=== PATIENT | female | born 1995 | race Caucasian/White ===

== ENCOUNTER 2018-06-24 08:45 | Emergency (ER) | payer MEDICAID, OTHER ==
[2018-06-24 09:03] VITALS: BP 112/60
--- NOTE | 2018-06-24 09:42 | ED ---
Throat Pain/Nasal Congestion - HPI Summary HPI Summary: 22 yr old female with the onset of sore throat two days ago. Pain in throat, redness, chills. No drooling, stridor. No nasal congestion. No other complaints. - History of Current Complaint Chief Complaint: UCGeneralIllness Time Seen by Provider: 06/24/18 09:15 - Allergies/Home Medications Allergies/Adverse Reactions: Allergies Allergy/AdvReac Type Severity Reaction Status Date / Time No Known Allergies Allergy Verified 06/24/18 09:00 Home Medications: Home Medications Ibuprofen TAB* [Advil TAB*] 800 mg PO Q6H PRN 06/24/18 [History Confirmed ] PMH/Surg Hx/FS Hx/Imm Hx Infectious Disease History: No Infectious Disease History: Denies: Traveled Outside the [place] in Last 30 Days - Family History Known Family History: Positive: Hypertension - Social History Occupation: Employed Full-time Lives: With Family Alcohol Use: Occasionally Substance Use Type: Reports: None Smoking Status (MU): Heavy Every Day Tobacco Smoker Amount Used/How Often: 1 pack per day Length of Time of Smoking/Using Tobacco: age 17 Have You Smoked in the Last Year: No Review of Systems Positive: Fever Positive: Sore Throat All Other Systems Reviewed And Are Negative: Yes Physical Exam Triage Information Reviewed: Yes Vital Signs On Initial Exam: Initial Vitals Temp Pulse Resp BP Pulse Ox 97.6 F 78 14 112/60 100 06/24/18 08:58 06/24/18 08:58 06/24/18 08:58 06/24/18 08:58 06/24/18 08:58 Vital Signs Reviewed: Yes Appearance: Positive: Well-Appearing, No Pain Distress Skin: Positive: Warm, Skin Color Reflects Adequate Perfusion Head/Face: Positive: Normal Head/Face Inspection Eyes: Positive: EOMI ENT: Positive: Pharyngeal erythema, TMs normal Neck: Positive: Supple, Nontender Respiratory/Lung Sounds: Positive: Clear to Auscultation, Breath Sounds Present Cardiovascular: Positive: RRR. Negative: Murmur Abdomen Description: Negative: Distended Musculoskeletal: Positive: Strength/ROM Intact Neurological: Positive: Sensory/Motor Intact, Alert, Oriented to Person Place, Time, CN Intact II-III Psychiatric: Positive: Normal Diagnostics - Vital Signs Vital Signs Temp Pulse Resp BP Pulse Ox 06/24/18 08:58 97.6 F 78 14 112/60 100 - Laboratory Lab Results: Lab Results 06/24/18 Range/Units 09:18 Group A Strep Rapid Negative (Negative) Lab Statement: Any lab studies that have been ordered have been reviewed, and results considered in the medical decision making process. EENT Course/Dx - Course Course Of Treatment: 22 yr old female with pharyngitis. Plan Dc home. rapid strep neg. - Diagnoses Provider Diagnoses: Pharyngitis Discharge - Sign-Out/Discharge Documenting (check all that apply): Patient Departure All imaging exams completed and their final reports reviewed: No Studies - Discharge Plan Condition: Good Disposition: HOME Patient Education Materials: Pharyngitis (ED) Referrals: Theodora Villela MD [Primary Care Provider] - 2 Days - Billing Disposition and Condition Condition: GOOD Disposition: Home
== END 2018-06-24 09:49 | disposition home or self-care (01) ==
LOC: UCCORT 08:45
DX: J02.9 Acute pharyngitis, unspecified (principal); Z87.891 Personal history of nicotine dependence
CPT/HCPCS: 87651; 99211; G0463

== ENCOUNTER 2018-09-04 14:26 | Emergency (ER) | payer OTHER ==
--- NOTE | 2018-09-06 14:54 | UC ---
Discharge - Sign-Out/Discharge Documenting (check all that apply): Post-Discharge Follow Up All imaging exams completed and their final reports reviewed: No Studies - Discharge Plan Condition: Stable Disposition: LEFT WITHOUT BEING SEEN Referrals: Theodora Villela MD [Primary Care Provider] - - Billing Disposition and Condition Condition: STABLE Disposition: Left Without Being Seen
== END 2018-09-04 14:52 | disposition left against medical advice (07) ==
LOC: UCCORT 14:26
DX: R58 Hemorrhage, not elsewhere classified (principal); Z53.21 Procedure and treatment not carried out due to patient leaving prior to being seen by health care provider

== ENCOUNTER 2022-10-01 15:27 | Inpatient (IN) ==
[2022-10-01] MEDS ORDERED: miSOPROStol 100 mcg TAB VAGINAL ONE (16:29)
[2022-10-01] MEDS ORDERED: Promethazine INJ(RESTRICTED) 25 MG/ML 1 ml VIAL IV PRN (16:29)
[2022-10-01] MEDS ORDERED: Nalbuphine 10 MG/ML 1 ML VIAL IV PRN (16:29)
[2022-10-01] MEDS ORDERED: Buffered Lidocaine 1% SYRIN 1 ml INTRADERM ONE (16:29)
[2022-10-01] MEDS ORDERED: Lactated Ringers 1000 ml BAG 1,000 ML IV ONE (16:29)
[2022-10-01 17:50] LABS: Urine Benzodiazepine Screen None Detected (None Detect); Urine Cannabinoids Screen None Detected (None Detect); Urine Opiates Screen None Detected (None Detect)
[2022-10-01] MEDS ORDERED: Dinoprostone 10 MG VAG.SUPP VAGINAL ONE (20:30)
[2022-10-01 21:31] LABS: ABS Eosinophils 0.2 10^3/ul (0-0.6); ABS Lymphocytes 2.5 10^3/ul (1.0-4.8); ABS Monocytes 1.1 10^3/ul (0-0.8); ABS Neutrophils 9.3 10^3/ul (1.5-7.7); Eosinophil % 1.4 %; Hematocrit 34 % (35-47); Hemoglobin 11.1 g/dL (12.0-16.0); Lymphocyte % 19.2 %; Mean Corpuscular HGB Conc 33 g/dL (31-36); Mean Corpuscular Hemoglobin 26 pg (27-31); Mean Corpuscular Volume 78 fL (80-97); Mean Platelet Volume 7.7 fL (7.4-10.4); Platelet Count 244 10^3/uL (150-450); Red Cell Distribution Width 14 % (10-15); White Blood Count 13.2 10^3/uL (3.5-10.8)
[2022-10-01 22:00] LABS: Albumin 3.3 g/dL (3.2-5.2); Albumin/Globulin Ratio 1.2 (1-3); Calcium 8.5 mg/dL (8.6-10.3); Globulin 2.8 g/dL (2-4); Total Bilirubin 0.3 mg/dL (0.2-1.0); Total Protein 6.1 g/dL (6.4-8.9); Uric Acid 4.3 mg/dL (2.3-6.6); eGFR CKD-EPI 133.1 (>60)
[2022-10-01] MEDS ORDERED: Morphine 10 MG/ML VIAL (1 ml) IV PRN (22:59)
[2022-10-02] MEDS ORDERED: Oxytocin in LR 20,000 MILLI.UNIT/1,000 ML BAG IV SCH (14:00)
[2022-10-02] MEDS: Lactated Ringers 1000 ml BAG 1,000 ML IV SCH (21:00)
[2022-10-02] MEDS ORDERED: OBEPIDURAL (200 ML) 200 ML EPIDURAL ONE (22:08)
[2022-10-02] MEDS ORDERED: EPINEPHrine SULFITE FREE 1 MG/ML ONE (22:09)
[2022-10-02] MEDS ORDERED: Lidocaine 1% VIAL 10 MG/ML VIAL 30 ML ONE (22:09)
[2022-10-02] MEDS ORDERED: Sodium Citrate/Citric Acid LIQ 15 ML UDC PO PRN (22:59)
[2022-10-02] MEDS ORDERED: Phenylephrine 40 mcg/mL 10mL (400mcg) SYRINGE IV PUSH PRN ×2 (22:59)
[2022-10-02] MEDS ORDERED: Lactated Ringers 1000 ml BAG 1,000 ML IV ONE (22:59)
[2022-10-02] MEDS ORDERED: OBEPIDURAL (200 ML) 200 ML EPIDURAL SCH (23:00)
[2022-10-02] MEDS ORDERED: Lactated Ringers 1000 ml BAG 1,000 ML IV SCH (23:00)
[2022-10-03 00:13] LABS: Urine Appearance Clear; Urine Bilirubin Negative (Negative); Urine Blood 1+ (Small) (Negative); Urine Color Yellow; Urine Glucose Negative (Negative); Urine Ketones Negative (Negative); Urine pH 6.5 (5.0-9.0)
[2022-10-03 00:14] LABS: Urine Nitrite Negative (Negative); Urine Protein Negative (Negative); Urine Urobilinogen 0.2 (Negative) (Negative)
[2022-10-03 00:17] LABS: Urine Bacteria Absent (Absent); Urine Red Blood Cell 3+(>10/hpf) (Absent); Urine Squamous Epithelial Cell Present (Absent); Urine White Blood Cell Absent (Absent)
[2022-10-03] MEDS: Lactated Ringers 1000 ml BAG 1,000 ML IV SCH (02:43)
[2022-10-03] MEDS ORDERED: Dibucaine 1% OINT 28.35 GM TUBE PR PRN (06:54)
[2022-10-03] MEDS ORDERED: Witch Hazel PAD JAR TOPICAL PRN (06:54)
[2022-10-03] MEDS ORDERED: Lactated Ringers 1000 ml BAG 1,000 ML IV SCH (07:00)
[2022-10-03] MEDS ORDERED: Varicella Virus Vaccine Live 0.5 ML VIAL SUBCUT ONE (16:00)
[2022-10-03] MEDS ORDERED: Tetan/Diph/Pertus SYR(Tdap) 0.5 ML SYR(BOOSTRIX) use SYR contains LATEX IM ONE (16:00)
[2022-10-03] MEDS ORDERED: Measles, Mumps,Rubella VACC 0.5 ML/VIAL SUBCUT ONE (16:00)
[2022-10-03 18:29] LABS: ABS Basophils 0.1 10^3/ul (0-0.2); ABS Eosinophils 0.2 10^3/ul (0-0.6); ABS Lymphocytes 2.9 10^3/ul (1.0-4.8); ABS Monocytes 1.1 10^3/ul (0-0.8); ABS Neutrophils 9.7 10^3/ul (1.5-7.7); Eosinophil % 1.8 %; Hematocrit 31 % (35-47); Hemoglobin 10.3 g/dL (12.0-16.0); Lymphocyte % 20.8 %; Mean Corpuscular HGB Conc 33 g/dL (31-36); Mean Corpuscular Hemoglobin 26 pg (27-31); Mean Corpuscular Volume 79 fL (80-97); Mean Platelet Volume 7.4 fL (7.4-10.4); Platelet Count 228 10^3/uL (150-450); Red Blood Count 3.94 10^6 /uL (3.70-4.87); Red Cell Distribution Width 14 % (10-15); White Blood Count 14.1 10^3/uL (3.5-10.8)
[2022-10-04 10:27] VITALS: BP 141/72
== END 2022-10-04 17:23 | disposition home or self-care (01) | DRG 560 ==
LOC: MCHOBOUT 15:27 → MCHOB 16:32
PROVIDERS: ADMIT Midwife; ATTEND Midwife